=== PATIENT | female | born 1955 | race Caucasian/White ===

== ENCOUNTER 2021-09-07 21:31 | Emergency (ER) | payer OTHER ==
[2021-09-07 22:40] LABS: BILIRUBIN NEGATIVE (NEGATIVE); BLOOD NEGATIVE Ery/uL (NEGATIVE); CLARITY HAZY (CLEAR); COLOR YELLOW (YELLOW); GLUCOSE (U) NORMAL (NORMAL); LEUKOCYTES NEGATIVE Leu/uL (NEGATIVE); NITRITE NEGATIVE (NEGATIVE); PROTEIN NEGATIVE (NEGATIVE); SPECIFIC GRAVITY <=1.005 (1.001-1.030); UROBILINOGEN 0.2 mg/dL (0.2-1.0)
[2021-09-07 23:17] LABS: BASOPHIL 0.9 % (0-2); EOSINOPHIL 0.5 % (0-7); HCT 43.7 % (37.0-47.0); HGB 14.7 g/dl (12.5-16.0); LYMPHOCYTE 10.8 % (15-48); MCHC 33.6 g/dL (32.0-36.0); MONOCYTE 10.5 % (0-12); MPV 11.9 fL (6.0-9.5); NEUTROPHIL 76.5 % (41-80); NRBC 0; PLT 132 K/uL (150-400); RDW 12.2 % (11.5-14.0); WBC 6.4 K/uL (4.0-10.5)
[2021-09-07 23:40] LABS: ALBUMIN 4.1 g/dL (3.4-5.0); BILIRUBIN - TOTAL 0.4 mg/dL (0.2-1.0); CREATININE 0.82 mg/dL (0.51-0.95); GLOBULIN (CALCULATION) 3.6 g/dL; POTASSIUM 3.7 mmol/L (3.5-5.1); TOTAL PROTEIN 7.7 g/dL (6.4-8.2)
== END 2021-09-08 02:55 | disposition home or self-care (01) ==
LOC: FER 21:31
PROVIDERS: Emergency Medicine
DX: R10.31 Right lower quadrant pain (principal); K59.00 Constipation, unspecified; I10 Essential (primary) hypertension; F17.200 Nicotine dependence, unspecified, uncomplicated; Z88.6 Allergy status to analgesic agent
CPT/HCPCS: 36415; 80053; 81003; 85025; J1885; J7030; Q9967